=== PATIENT | female | born 1955 | race Caucasian/White ===

== ENCOUNTER 2022-10-07 09:25 | Emergency (ER) | payer MEDICARE, BC ==
[~2022-10-07] VITALS: Ht 162.6 cm; Wt 88.6 kg
[2022-10-07 10:27] VITALS: BP 177/94
[2022-10-07] MEDS ORDERED: HYDR-3965 PO (11:39)
== END 2022-10-07 11:58 | disposition home or self-care (01) ==
LOC: ER 09:25
DX: M54.50 Low back pain, unspecified (principal); G89.29 Other chronic pain; Z90.49 Acquired absence of other specified parts of digestive tract
CPT/HCPCS: 99283

== ENCOUNTER 2024-03-12 10:38 | Day surgery (SDC) | payer MEDICARE, OTHER ==
[2024-03-07 10:57] LABS: BASOPHILS # (AUTO) 0.1 X10'3 (0-0.2); BASOPHILS % (AUTO) 0.8 % (0-1); EOSINOPHILS # (AUTO) 0.1 X10'3 (0-0.9); EOSINOPHILS % (AUTO) 1.3 % (0-6); HEMATOCRIT 43.4 % (35.0-45.0); LYMPHOCYTES # (AUTO) 2.1 X10'3 (1.1-4.8); LYMPHOCYTES % (AUTO) 27.6 % (21-51); MEAN CORPUSCULAR HEMOGLOBIN 28.1 PG (27.0-31.0); MEAN CORPUSCULAR HGB CONC 32.3 g/dL (33.0-36.5); MEAN CORPUSCULAR VOLUME 86.9 FL (78-98); MEAN PLATELET VOLUME 8.2 FL (7.4-10.4); MONOCYTES # (AUTO) 0.6 X10'3 (0-0.9); MONOCYTES % (AUTO) 7.8 % (2-12); NEUTROPHILS # (AUTO) 4.7 X10'3 (1.8-7.7); NEUTROPHILS % (AUTO) 62.5 % (42-75); PLATELET COUNT 271 X10'3 (140-440); RED CELL DISTRIBUTION WIDTH 15.8 % (11.5-14.5); WHITE BLOOD COUNT 7.6 X10'3 (4.5-11.0)
[2024-03-07 11:06] LABS: APTT 28 SECONDS (22-32); INR 1.1 INR; PROTHROMBIN TIME 11.4 SECONDS (9.0-12.0)
[2024-03-07 11:08] LABS: ALBUMIN 3.2 G/DL (3.4-5.0); ANION GAP 7 (8-16); BLOOD UREA NITROGEN 13 MG/DL (7-18); BUN/CREATININE RATIO 18.1 (10.0-20.0); CALCIUM 8.1 MG/DL (8.5-10.1); CHLORIDE 106 MMOL/L (99-107); CREATININE 0.72 MG/DL (0.40-0.90); GLUCOSE 114 MG/DL (70-104); SODIUM 137 MMOL/L (135-145); TOTAL CARBON DIOXIDE 23.9 MMOL/L (24-32); eGFR 81 ML/MIN
[~2024-03-12] VITALS: Ht 160 cm; Wt 90.8 kg
[2024-03-12] VITALS (12 sets, daily range): BP systolic 103–137; BP diastolic 39–84; PULSE 54–107; RESP 12–18; TEMP 97.5; O2SAT 96–99
[2024-03-12] MEDS ORDERED: APIX5TAB3 PO (11:06)
[2024-03-12] MEDS ORDERED: [UNRECOGNIZED DRUG - CODE] (11:06)
[2024-03-12] MEDS ORDERED: TIMO5DRO36 EACHEYE (11:06)
[2024-03-12] MEDS ORDERED: LANS30CA56 PO (11:06)
[2024-03-12] MEDS ORDERED: LEVO50TA8 PO (11:06)
[2024-03-12] MEDS ORDERED: AMLO-139 PO (11:06)
[2024-03-12] MEDS ORDERED: ATOR10TA70 PO (11:06)
[2024-03-12] MEDS ORDERED: LATA2.5D14 EACHEYE (11:06)
[2024-03-12] MEDS ORDERED: MELA3CAP2 PO (11:06)
[2024-03-12] MEDS ORDERED: FLEC50TA28 PO (11:06)
[2024-03-12] MEDS ORDERED: ACET-864 (11:06)
[2024-03-12] MEDS ORDERED: ESTR1PAT82 TD (11:06)
[2024-03-12] MEDS: normal saline 1000ml 1,000 ML IV SCH (11:19)
[2024-03-12] MEDS: fentaNYL/PF 50MCG/1 ML 2ML syringe IV ONE (12:34)
[2024-03-12] MEDS: MIDAZolam 1mg/ml 10ml vial IV ONE (12:34)
== END 2024-03-12 14:10 | disposition home or self-care (01) ==
LOC: SSTAY O 10:38
PROVIDERS: ATTEND Student in an Organized Health Care Education/Training Program
DX: I48.91 Unspecified atrial fibrillation (principal); I10 Essential (primary) hypertension; E78.00 Pure hypercholesterolemia, unspecified; Z79.01 Long term (current) use of anticoagulants; Z79.2 Long term (current) use of antibiotics; Z79.891 Long term (current) use of opiate analgesic; Z79.899 Other long term (current) drug therapy; Z88.0 Allergy status to penicillin; Z88.8 Allergy status to other drugs, medicaments and biological substances
CPT/HCPCS: 36415; 80048; 85025; 85610; 85730; 92960; 93005; J2250; J3010; J7030; A4620